=== PATIENT | male | born 1990 | race Caucasian/White ===

== ENCOUNTER 2018-08-06 02:22 | Emergency (ER) | payer OTHER ==
[~2018-08-06] VITALS: Ht 193 cm; Wt 111.0 kg
[2018-08-06 02:47] VITALS: BP 152/112
== END 2018-08-06 02:47 | disposition left against medical advice (07) ==
LOC: ER 02:22
DX: F10.129 Alcohol abuse with intoxication, unspecified (principal); Y90.5 Blood alcohol level of 100-119 mg/100 ml; M25.532 Pain in left wrist; M25.531 Pain in right wrist; M54.2 Cervicalgia; R00.0 Tachycardia, unspecified; I10 Essential (primary) hypertension; Y35.813A Legal intervention involving manhandling, suspect injured, initial encounter; Y93.89 Activity, other specified; Y92.89 Other specified places as the place of occurrence of the external cause; Z71.89 Other specified counseling; E10.9 Type 1 diabetes mellitus without complications; Z79.4 Long term (current) use of insulin
CPT/HCPCS: 82962; 99283